=== PATIENT | female | born 1960 | race African-American/Black ===

== ENCOUNTER → 2016-12-21 | Outpatient (CLI) | payer BC ==
--- NOTE | ~2016-12-21 | MY29 ---
[facility] A Service of [facility] RADIOLOGY TEXT RESULTS PATIENT: JONNA DURAN LOCATION: [facility] : 64 UNIT #: [id number] AGE: [address]: Maira Bennett MD SEX: F ORDER DR: [id number] [facility] [address] [place], [place] [address] [id number] O MR#: [id number] Acc #: [id number] NAME: JONNA DURAN : 1960 SEX: F STUDY DATE/TIME: 12/21/2016 15:13 UNIT: [facility] ROOM: STUDY DESCRIPTION: MY FADUMO SCREENING W/ CAD BILAT Attending Physician: Maira Bennett M.D. Ordering Physician: Maira Bennett M.D. Primary Care Physician: Maira Bennett M.D. MEDICAL IMAGING REPORT This report is preliminary unless electronic signature is present EXAM Digital screening mammogram, 12/21/2016, [facility]. HISTORY 56-year-old woman positive family history, mom and sister. Previous left breast biopsy. Annual screen. COMPARISON Mammograms date to 08/19/2010 with most recent 12/16/2015. TECHNIQUE Digital imaging of each breast was completed utilizing screening protocol. Review includes FDA-approved CAD device. FINDINGS Breast parenchyma bilaterally remains very dense. Biopsy marker projects outer hemisphere left breast. Occasional faint punctate microcalcification noted in the left breast. I see no suspicious mass characteristics. There are no interval occurring microcalcifications and no suspicious architectural disturbance. IMPRESSION Benign mammogram. Annual screening recommended. Patients over the age of 40 are entered into a reminder system with target due date for the next mammogram. A result letter will also be sent to the patient. BIRADS: 2 Benign finding. Dictated by... [facility] A Service [facility] RADIOLOGY TEXT RESULTS PATIENT: JONNA DURAN LOCATION: [facility] : 64 UNIT #: [id number] AGE: [address]: Maira Bennett MD SEX: F ORDER DR: Marquis Bray M.D. THIS IS AN ELECTRONICALLY VERIFIED REPORT Marquis Bray M.D. at 12/22/2016 8:16 AM LESLI/lainey TD: 12/21/2016 15:51 JOB #: [id number] MEDICAL IMAGING REPORT Page 1 of 1 COPY
== END | disposition home or self-care (01) ==
LOC: CWCC 14:55
DX: Z12.31 Encounter for screening mammogram for malignant neoplasm of breast (principal); Z80.3 Family history of malignant neoplasm of breast; Z98.890 Other specified postprocedural states
CPT/HCPCS: G0202